=== PATIENT | male | born 1965 | race Caucasian/White ===

== ENCOUNTER → 2020-06-20 | Outpatient (CLI) | payer MEDICARE, OTHER ==
--- NOTE | 2020-06-20 11:06 | RAD ---
Examination: Ultrasound posterior neck History: history of posterior neck lump COMPARISON: None available. Findings/ impression: Ultrasound of the left posterior neck demonstrates no evidence of mass or fluid. Electronically signed by: Rey Bautista MD (06/20/2020 11:03 AM) [id number]
== END ==
LOC: US 10:10
PROVIDERS: ATTEND Nurse Practitioner Adult Health
DX: R22.1 Localized swelling, mass and lump, neck (principal)
CPT/HCPCS: 76536

== ENCOUNTER 2020-08-06 05:30 | Emergency (ER) | payer OTHER ==
[~2020-08-06] VITALS: Ht 188 cm; Wt 110.7 kg
--- NOTE | 2020-08-06 06:26 | PHYS DOC ---
Past History Past Medical History: Diabetes, Hypertension (DEISI MAYERS DO) Past Surgical History: No Surgical History, Other Additional Past Surgical Histo: inguinal hernia repair (DEISI MAYERS DO) Alcohol Use: Occasionally (DEISI MAYERS DO) Adult General Chief Complaint Chief Complaint: BACK PAIN - NO INJURY HPI HPI Patient is a 55-year-old male who presents with right flank pain. Onset was 3 days ago without any known inciting event and/or trauma. States he woke up with right-sided back pain. Staying in a seated position makes worse, patient r eports certain twisting movements, palpation and urination make worse. Patient reports a deep pain that radiates to right groin. Symptoms initially waxed and waned but became more severe yesterday evening prior to bed. He called his primary care physician who advised him to come into the ER for evaluation but he deferred, states he fell asleep and slept poorly and because of that, came in this morning for evaluation. Associated symptoms include chills, right-sided flank pain as described above that radiates into right groin, constipation with last normal bowel movement 3 days ago, and changes in urination specifically feelings of incomplete voiding. Denies any fevers greater than 100.4, sick contacts, concerning ingestion, chest pain, shortness of breath, loss of bladder or bowel control, no saddle anesthesia (DEISI MAYERS DO) Review of Systems Review of Systems Fourteen body systems of review of systems have been reviewed. See HPI for pertinent positives and negative responses, other mueller all other systems are negative, non-pertinent or non-contributory (DEISI MAYERS DO) Allergies Allergies Allergies Coded Allergies Type Severity Reaction Last Updated Verified Penicillins Allergy Intermediate 08/06/20 Yes codeine Allergy Intermediate 08/06/20 Yes (DEISI MAYERS DO) Physical Exam Physical Exam Constitutional: Well developed, well nourished, no acute distress, non-toxic appearance. HENT: Normocephalic, atraumatic, bilateral external ears normal, oropharynx moist, no oral exudates, nose normal. Eyes: PERRLA, EOMI, conjunctiva normal, no discharge. Neck: Normal range of motion, no tenderness, supple, no stridor. Cardiovascular: Heart rate tachycardic, sinus rhythm, no murmurs rubs or gallops Lungs & Thorax: Bilateral breath sounds clear to auscultation Abdomen: Bowel sounds normal, soft, no tenderness, no masses, no pulsatile masses. Nonsurgical abdomen, no peritoneal signs. exam performed remarkable for circumcised penis without discharge or abnormalities, descended bilateral testicles nontender to palpation without any visual and/or palpable abnormalities, unremarkable hernia checks into the bilateral inguinal canals Skin: Warm, dry, no erythema, no rash. Back: No tenderness, right CVA tenderness. Extremities: No tenderness, no cyanosis, no clubbing, ROM intact, no edema. Neurologic: Alert and oriented X 3, normal motor & sensory function, no saddle anesthesia, negative straight leg raise bilaterally, no focal deficits noted. Psychologic: Anxious affect and mood (DEISI MAYERS DO) Current Patient Data Vital Signs Vital Signs Date Time Temp Pulse Resp B/P (MAP) Pulse Ox O2 Delivery O2 Flow Rate FiO2 08/06/20 05:30 99.1 109 20 145/98 (114) 93 Room Air (DEISI MAYERS DO) EKG EKG [] (DEISI MAYERS DO) Radiology/Procedures Radiology/Procedures [] (DEISI MAYERS DO) Radiology/Procedures IMAGING REPORT Signed PATIENT: JOSE ELIAS PÉREZ ACCOUNT: [id number] : 1965 LOCATION: ER AGE: 55 SEX: M EXAM STATUS: REG ER ORD. PHYSICIAN: DESTINI HARO DO REASON: back pain, abnormal lung findings in CT PROCEDURE: CHEST AP ONLY EXAM: Chest, single view. HISTORY: Pain COMPARISON: None. FINDINGS: A frontal view of the chest obtained. There is bilateral lower lobe, lingular and right middle lobe atelectasis or interstitial infiltrate. No pleural effusion or pneumothorax is seen. The heart is normal in size. IMPRESSION: Bilateral lower lobe, lingular and right middle lobe atelectasis or interstitial infiltrate. Electronically signed by: Fely Gotti MD (08/06/2020 8:16 AM) [id number] DICTATED AND SIGNED BY: FELY GOTTI MD DATE: 08/06/20 0815 CC: YASH LLOYD MD; DESTINI HARO DO ~MTH0 0 IMAGING REPORT Signed PATIENT: JOSE ELIAS PÉREZ ACCOUNT: [id number] : 1965 LOCATION: ER AGE: 55 SEX: M EXAM STATUS: REG ER ORD. PHYSICIAN: DESTINI HARO DO REASON: right flank pain, soa, chills, constipation PROCEDURE: CT ABDOMEN PELVIS WO CONTRAST INDICATION: Reason: right flank pain, soa, chills, constipation / Spl. Instructions: / History: . COMPARISON: None. TECHNIQUE: Axial CT images obtained through the abdomen and pelvis without contrast. One or more of the following individualized dose reduction techniques were utilized for this examination: 1. Automated exposure control; 2. Adjustment of the mA and/or kV according to patient size; 3. Use of iterative reconstruction technique. FINDINGS: Opacities at the bilateral lung bases. 4 mm nodule left lung base. Scattered calcific atherosclerosis without abdominal aortic aneurysm. Left greater than right inguinal hernia as with loops of bowel extending into the left. No intrahepatic bile duct dilation. Small amount of high density material within the gallbladder. No peripancreatic fluid collection. Suspected duodenal diverticulum. Spleen unremarkable. Low-density thickening of the left adrenal gland. Nonobstructive 2 mm left renal stone as well as some smaller nonobstructive left renal stones. No left-sided hydronephrosis or radiopaque obstructive ureter stone. Urinary bladder is partially distended. There is a couple of suspected tiny nonobstructive right renal stones. No right- sided hydronephrosis no definite radiopaque obstructive right ureter stone. Nonspecific perinephric stranding bilaterally. Moderate stool within portion of colon. The suspected appendix does not appear dilated. Retrocecal in location. Couple mildly prominent loops of small bowel but no high-grade transition point. Degenerative changes throughout the spine with multilevel central canal and neural foraminal stenosis. Degenerative changes the bilateral hips. IMPRESSION: * Focal opacities at the lung bases which could be from atelectasis or infiltrate. * Left lung base pulmonary nodule. * Nonobstructive renal stones without a definite radiopaque obstructive ureter stone. There is also some nonspecific perirenal stranding. * Left inguinal hernia with a loop of bowel extending into it. Fleischner Society recommendations for solitary solid lung nodule follow up.: In a low risk patient: <6mm - No follow up required. 6-8mm - 6-[address], then CT at 18-24 months. >8mm - CT at 3 months, PET/CT or tissue sampling. In a high risk patient (history of smoking or other known risk factors): <6mm - Follow up CT at 12 months. 6-8mm - 6-[address], then CT at 18-24 months. >8mm - CT at 3 months, PET/CT or tissue sampling. Fleischner Society recommendations for multiple solid lung nodule follow up.: In a low risk patient: <6mm - No follow up required. 6-8mm - 3-[address], then CT at 18-24 months. >8mm - CT at 3-6 months, then at 18-24 months. PET/CT or tissue sampling based on most suspicious nodule. In a high risk patient (history of smoking or other known risk factors): <6mm - Follow up CT at 12 months. 6-8mm - 3-[address], then CT at 18-24 months. >8mm - CT at 3-6 months, PET/CT or tissue sampling option based on most suspicious nodule. Electronically signed by: Simona Schwarz MD (08/06/2020 7:45 AM) [id number] DICTATED AND SIGNED BY: SIMONA SCHWARZ MD DATE: 08/06/20730 (DESTINI HARO DO) Heart Score Risk Factors: Risk Factors: DM, Current or recent (<one month) smoker, HTN, HLP, family history of CAD, obesity. Risk Scores: Risk Factors: DM, Current or recent (<one month) smoker, HTN, HLP, family history of CAD, obesity. (DEISI MAYERS DO) Course & Med Decision Making Course & Med Decision Making Patient initially triaged and had comprehensive history and physical examination performed by myself that was nonconcerning for any emergent and/or surgical pathology At this time of care, my shift has ended. Comprehensive signout about patient's history of presenting illness and physical exam findings discussed Oncoming physician to reevaluate patient and determine work-up as indicated. Please defer to Dr. Haro' documentation regarding further patient care while in our ER (DEISI MAYERS DO) Course & Med Decision Making I received signout by Dr. Mayers at shift change. I re-evaluated pt. Pt with NIDDM, HTN and HLD, with c/o right paraspinal low back pain that radiates to the front, described as a "stomach ulcer, it feels like someones' holding a light to my back." Reports associated subjective fevers, nausea "I think that's cause of the pain.," and decreased urine output, "I know I'm dehydrated, my urine is dark." LBM 2-3 days ago. No recent alcohol use. No h/o kidney stones. Cannot recall any trauma, heavy lifting or strenous physical activity. Does report history of narcotic pain medication use not relieving pain from rotator cuff surgery "those meds never work on me." Has no history of back problems. Denies any dysuria, hematuria, urinary frequency or urgency, saddle anesthesia, urinary or bowel retention or incontinence, abdominal or pelvic pain (no left inguinal pain). No FH cancer. Pt does not smoke tobacco. Ed workup-patient afebrile with no leukocytosis. Sodium slightly low with non- anion gap hyperglycemia. CK and renal function normal. Urinalysis with no signs of UTI, trace blood/3-[address] Does show [address] with multiple nonemergent findings-bl nephrolithiasis, pulm nodule, normal aorta/no AAA. CXR with bl lower lobe and interstitial infiltrates. Minimal relief with dilaudid, pepcid, reglan. Patient reports toradol makes pain "tolerable," and is now more active/ambulatory in ed room-appears that pain has improved. Will prescribe ibuprofen and muscle relaxers along with antibiotics to cover for pneumonia. I called Dr. Ford (pt had called him last night/couldn't sleep)-discussed pts' sxs/presentation and ed workup. He agrees with this plan. Will discharge home with strict ED return precautions were given for saddle anesthesia, urinary bowel retention or incontinence, neurologic deficits, persistent nausea or vomiting, worsening fever, neck stiffness or dehydration. Encouraged urgent outpatient follow-up with PMD within 2-5 days. Life-threatening processes were considered but are low suspicion at this time, given history, physical exam and ED workup. Pt was educated on all prescription medications and adverse effects. All patient's questions were answered and pt was stable at time of discharge. Life/limb-threatening differential includes but is not limited to, aortic dissection/aneurysm, cauda equina syndrome, transverse myelitis, spinal cord/epidural compression syndromes, discitis, spinal stenosis, epidural abscess or hematoma, osteomyelitis, disc herniation, surgical abdomen, stable or unstable fracture, renal/ureteral colic, sepsis, meningitis, musculoskeletal i njury, traumatic injury, intraabdominal/retroperitoneal or pelvic bleeding. I spoken with the patient and her caregivers. I explained the patient's condition, diagnoses and treatment plan based on the information available to me at this time. I have answered the patient and her caregiver's questions and addressed any concerns. The patient and her caregivers have a good understa nding of patient's diagnosis, condition and treatment plan as can be expected at this point. Vital signs have been stable. Patient's condition is stable and appropriate for discharge from the emergency department. Patient will pursue further outpatient evaluation with primary care physician or other designated or consulting physician as outlined in the discharge instructions. The patient and/or caregivers are agreeable to this plan of care and follow-up instructions have been explained in detail. The patient and/or caregivers have received these instructions in written form and have expressed an understanding of the discharge instructions. The patient and/or caregivers are aware that any significant change of condition or worsening of symptoms should prompt immediate return to this or the closest emergency department or call to 315. (DESTINI HARO DO) Dragon Disclaimer Dragon Disclaimer This electronic medical record was generated, in whole or in part, using a voice recognition dictation system. (DEISI MAYERS DO) Departure Departure: Impression: Primary Impression: Right low back pain Additional Impressions: Atypical pneumonia Incidental lung nodule, less than or equal to 3mm Constipation Bilateral nephrolithiasis Ketonuria Disposition: 01 DC HOME SELF CARE/HOMELESS Condition: STABLE Referrals: YASH LLOYD MD (PCP) in 2-5 days for re-evaluation Patient Instructions: Back Pain, Adult, Constipation, Adult, Dehydration, Adult, Pneumonia, Adult Additional Instructions: EMERGENCY DEPARTMENT GENERAL DISCHARGE INSTRUCTIONS Thank you for coming to [facility] (ED) today and trusting us with you care. We trust that you had a positivie experience in our Emergency Department. If you wish to speak to the department management, you may call the director at [phone]. YOUR FOLLOW UP INSTRUCTIONS ARE FOLLOWS: 1. Do you have a private Doctor? If you do not have a private doctor, please ask for a resource list of physicians or clinics that may be able to assist you with follow up care. 2. The Emergency Physician has interpreted your x-rays. The X-Ray specialist will also review them. If there is a change in the findings, you will be notified in 48 hours when at all possible. 3. A lab test or culture has been done, your results will be reviewed and you will be notified if you need a change in treatment. ADDITIONAL INSTRUCTIONS AND INFORMATION: 1. Your care today has been supervised by a physician who is specially trained in emergency care. Many problems require more than one evaluation for a complete diagnosis and treatment. We recommend that you schedule your follow up appointment as recommended to ensure complete treatment of you illness or injury. If you are unable to obtain follow up care and continue to have a problem, or if your condition worsens, we recommend that you return to the ED. 2. We are not able to safely determine your condition over the phone nor are we able to give sound medical advice over the phone. For these safety reasons, if you call for medical advice we will ask you to come to the ED for further evaluation. 3. If you have any questions regarding these discharge instructions please call the ED at [phone]. SAFETY INFORMATION: In the interest of safety, wellness, and injury prevention; we encourage you to wear your sealbelt, if you smoke; quite smoking, and we encourage family to use a prot ective helmet for bicycling and other sporting events that present an increased risk for head injury. IF YOUR SYMPTOMS WORSEN OR NEW SYMPTOMS DEVELOP, OR YOU HAVE CONCERNS ABOUT YOUR CONDITION; OR IF YOUR CONDITION WORSENS WHILE YOU ARE WAITING FOR YOUR FOLLOW UP APPOINTMENT; EITHER CONTACT YOUR PRIMARY CARE DOCTOR, THE PHYSICIAN WHOSE NAME AND NUMBER YOU WERE GIVEN, OR RETURN TO THE ED IMMEDIATELY. Scripts Doxycycline Hyclate (DOXYCYCLINE HYCLATE) 100 Mg Capsule 1 CAP PO BID for pneumonia for 7 Days, #14 CAP Prov: DESTINI HARO DO 08/06/20 Cyclobenzaprine Hcl (CYCLOBENZAPRINE HCL) 10 Mg Tablet 1 TAB PO TID PRN for MUSCLE SPASMS, #15 TAB Prov: DESTINI HARO DO 08/06/20 Ibuprofen (Ibu) 600 Mg Tablet 1 TAB PO Q6HRS for pain for 5 Days, #20 TAB 0 Refills Prov: DESTINI HARO DO 08/06/20 Azithromycin (AZITHROMYCIN TABLET) 250 Mg Tablet 1 PKG PO UD for lung nodule for 5 Days, #6 TAB 0 Refills 2 the first day followed by 1 for days 2-5 Prov: DESTINI HARO DO 08/06/20 Problem Qualifiers DEISI MAYERS DO Aug 06, 2020 06:26 DESTINI HARO DO Aug 06, 2020 09:04
[2020-08-06] MEDS ORDERED: FAMOTIDINE 20 MG/2 ML VIAL IVP ONE (06:30)
[2020-08-06] MEDS ORDERED: METOCLOPRAMIDE HCL 10 MG/2 ML VIAL. IVP ONE (06:30)
[2020-08-06] MEDS ORDERED: IV NORMAL SALINE 1,000ML 1,000 ML IV ONE (06:30)
[2020-08-06] MEDS ORDERED: HYDROmorphone PF 1 MG/ML DISP.SYRIN IVP ONE (07:00)
[2020-08-06 07:02] LABS: CALCIUM 8.3 mg/dL (8.5-10.1); CREATININE 0.8 mg/dL (0.7-1.3); GFR 100.4; POTASSIUM 3.7 mmol/L (3.5-5.1)
[2020-08-06 07:03] LABS: BASO # 0.1 x10^3/uL (0.0-0.2); BASO % 1 % (0-3); EOS % 0 % (0-3); HEMOGLOBIN 13.6 g/dL (13.0-17.5); LYMPH # 0.6 x10^3/uL (1.0-4.8); LYMPH % 6 % (24-48); MEAN CORPUSCULAR HEMOGLOBIN 28 pg (25-35); MEAN CORPUSCULAR HGB CONC 33 g/dL (31-37); MEAN CORPUSCULAR VOLUME 85 fL (79-100); MONO # 1.3 x10^3/uL (0.0-1.1); MONO % 12 % (0-9); NEUT # 8.8 x10^3uL (1.8-7.7); NEUT % 82 % (31-73); PLATELET COUNT 234 x10^3/uL (140-400); RED BLOOD COUNT 4.82 x10^6/uL (4.30-5.70); RED CELL DISTRIBUTION WIDTH 13.7 % (11.5-14.5); WHITE BLOOD COUNT 10.7 x10^3/uL (4.0-11.0)
[2020-08-06 07:13] LABS: ALBUMIN 3.7 g/dL (3.4-5.0); ALBUMIN/GLOBULIN RATIO 0.9 (1.0-1.7); TOTAL BILIRUBIN 0.5 mg/dL (0.2-1.0); TOTAL PROTEIN 7.9 g/dL (6.4-8.2)
[2020-08-06 07:19] LABS: BILIRUBIN,URINE NEG (NEG); CLARITY,URINE HAZY; COLOR,URINE AMBER; GLUCOSE,URINE 500 mg/dL (NEG)
[2020-08-06 07:20] LABS: BACTERIA,URINE FEW /HPF (0-FEW); HYALINE CASTS, URINE OCC /HPF; NITRITE,URINE NEG (NEG); SQUAMOUS EPITHELIAL CELL,UR OCC /LPF
--- NOTE | 2020-08-06 07:47 | RAD ---
INDICATION: Reason: right flank pain, soa, chills, constipation / Spl. Instructions: / History: . COMPARISON: None. TECHNIQUE: Axial CT images obtained through the abdomen and pelvis without contrast. One or more of the following individualized dose reduction techniques were utilized for this examinat ion: 1. Automated exposure control; 2. Adjustment of the mA and/or kV according to patient size; 3 . Use of iterative reconstruction technique. FINDINGS: Opacities at the bilateral lung bases. 4 mm nodule left lung base. Scattered calcific atherosclerosis without abdominal aortic aneurysm. Left greater than right inguina l hernia as with loops of bowel extending into the left. No intrahepatic bile duct dilation. Small amount of high density material within the gallbladder. No peripancreatic fluid collection. Suspected duodenal diverticulum. Spleen unremarkable. Low-density thickening of the left adrenal gland. Nonobstructive 2 mm left renal stone as well as some smaller nonobstructive left renal stones. No lef t-sided hydronephrosis or radiopaque obstructive ureter stone. Urinary bladder is partially distended. There is a couple of suspected tiny nonobstructive right renal stones. No right-sided hydronephrosis no definite radiopaque obstructive right ureter stone. Nonspecific perinephric stranding bilaterally. Moderate stool within portion of colon. The suspected appendix does not appear dilated. Retrocecal in location. Couple mildly prominent loops of small bowel but no high-grade transition point. Degenerative changes throughout the spine with multilevel central canal and neural foraminal stenosis . Degenerative changes the bilateral hips. IMPRESSION: * Focal opacities at the lung bases which could be from atelectasis or infiltrate. * Left lung base pulmonary nodule. * Nonobstructive renal stones without a definite radiopaque obstructive ureter stone. There is also some nonspecific perirenal stranding. * Left inguinal hernia with a loop of bowel extending into it. Fleischner Society recommendations for solitary solid lung nodule follow up.: In a low risk patient: <6mm - No follow up required. 6-8mm - 6-[address], then CT at 18-24 months. >8mm - CT at 3 months, PET/CT or tissue sampling. In a high risk patient (history of smoking or other known risk factors): <6mm - Follow up CT at 12 months. 6-8mm - 6-[address], then CT at 18-24 months. >8mm - CT at 3 months, PET/CT or tissue sampling. Fleischner Society recommendations for multiple solid lung nodule follow up.: In a low risk patient: <6mm - No follow up required. 6-8mm - 3-[address], then CT at 18-24 months. >8mm - CT at 3-6 months, then at 18-24 months. PET/CT or tissue sampling based on most suspicious no dule. In a high risk patient (history of smoking or other known risk factors): <6mm - Follow up CT at 12 months. 6-8mm - 3-[address], then CT at 18-24 months. >8mm - CT at 3-6 months, PET/CT or tissue sampling option based on most suspicious nodule. Electronically signed by: Yrn Basilio MD (08/06/2020 7:45 AM) [id number]
[2020-08-06] MEDS ORDERED: KETOROLAC 15 MG/ML VIAL. IVP ONE (08:00)
--- NOTE | 2020-08-06 08:19 | RAD ---
EXAM: Chest, single view. HISTORY: Pain COMPARISON: None. FINDINGS: A frontal view of the chest obtained. There is bilateral lower lobe, lingular and right mid dle lobe atelectasis or interstitial infiltrate. No pleural effusion or pneumothorax is seen. The hea rt is normal in size. IMPRESSION: Bilateral lower lobe, lingular and right middle lobe atelectasis or interstitial infiltra te. Electronically signed by: Fely Wong MD (08/06/2020 8:16 AM) [id number]
[2020-08-06 08:50] VITALS: BP 138/68
[2020-08-06] MEDS ORDERED: AMOX1TAB61 PO (09:00)
[2020-08-06] MEDS ORDERED: AZIT250T6 PO (09:00)
[2020-08-06] MEDS ORDERED: CYCL-331 PO (09:00)
[2020-08-06] MEDS ORDERED: IBUP-571 PO (09:00)
[2020-08-06] MEDS ORDERED: DOXY100C2 PO (09:12)
[2020-08-06] MEDS ORDERED: diazePAM 5 MG TABLET. PO ONE (09:15)
== END 2020-08-06 09:21 | disposition home or self-care (01) ==
LOC: ER 05:30
DX: J18.9 Pneumonia, unspecified organism (principal); R91.1 Solitary pulmonary nodule; N20.0 Calculus of kidney; R82.4 Acetonuria; K59.00 Constipation, unspecified; M54.5 Low back pain; E11.9 Type 2 diabetes mellitus without complications; I10 Essential (primary) hypertension; Z88.0 Allergy status to penicillin; Z88.5 Allergy status to narcotic agent
CPT/HCPCS: 36415; 71045; 74176; 80053; 81001; 82550; 85025; 96361; 96374; 96375; 99285; J1170; J1885; J2765; J3490; J7030